=== PATIENT | female | born 1955 | race Caucasian/White ===

== ENCOUNTER 2018-10-06 00:36 | Day surgery (SDC) | payer MEDICARE, OTHER ==
[2018-10-05 15:17] LABS: INR 0.98
[~2018-10-06] VITALS: Ht 154.9 cm; Wt 74.8 kg
[~2018-10-06 00:36] MED LIST: BACL-1 PO; FLUT16SP19 NS; OXYC-865 PO; SIMV-44 PO
[2018-10-06] MEDS ORDERED: MIDAZOLAM 2 MG/2 ML VIAL IVP PRN (06:00)
[2018-10-06] MEDS ORDERED: LIDOCAINE/SOD BICARB 8.4% SYR ID ONE (06:00)
[2018-10-06] MEDS ORDERED: NORMOSOL R SOLN(*) 1000 ML BAG 1,000 ML IV PRN (06:00)
[2018-10-06] MEDS ORDERED: CLINDAMYCIN(*) 900 MG/NS 50 ML 50 ML IVPB ONE (06:00)
[2018-10-06] MEDS ORDERED: BACITRACIN 50000 UNIT/VIAL 100,000 UNIT in NS 0.9% 3000 ML IRRIGATION BAG 3,000 ML IR ONE (06:00)
[2018-10-06] MEDS ORDERED: CELECOXIB 200 MG CAP PO ONE (06:00)
[2018-10-06] MEDS ORDERED: ROPIVACAINE/EPI/CLONIDINE/KET 50 ML SYRINGE INJ ONE (06:00)
[2018-10-06] MEDS ORDERED: PREGABALIN 150 MG CAPSULE PO ONE (06:00)
[2018-10-06] MEDS ORDERED: FAMOTIDINE 20 MG TAB PO ONE (06:00)
[2018-10-06] MEDS ORDERED: ACETAMINOPHEN 500 MG TAB PO ONE (06:00)
[2018-10-06] MEDS ORDERED: ROPIVACAINE 0.2% 20 ML VIAL ONE (07:42)
[2018-10-06] MEDS ORDERED: LIDO/EPI 2% MPF 1:200,000 20ML ONE (07:42)
[2018-10-06] MEDS ORDERED: fentaNYL CITR 250 MCG/5 ML AMP ONE (08:12)
[2018-10-06] MEDS ORDERED: DEXAMETHASONE SOD 4 MG/ML VIAL ONE (08:13)
[2018-10-06] MEDS ORDERED: LIDOCAINE MPF 1% 5 ML VIAL ONE (08:13)
[2018-10-06] MEDS ORDERED: PROPOFOL EMUL(*) 10MG/ML 20 ML 0 ML ONE (08:13)
[2018-10-06] MEDS ORDERED: ONDANSETRON 4 MG/2 ML VIAL ONE (08:13)
[2018-10-06] MEDS ORDERED: KETAMINE HCL 200 MG/20 ML MDV ONE (08:14)
[2018-10-06] MEDS ORDERED: SUGAMMADEX SOD 200 MG/2 ML SDV ONE (08:17)
[2018-10-06 08:19] VITALS: BP 132/76
== END 2018-10-06 18:00 | disposition home or self-care (01) ==
LOC: OR 00:36
PROVIDERS: ATTEND Orthopaedic Surgery
DX: Z02.89 Encounter for other administrative examinations (principal)
CPT/HCPCS: 36415; 85610; 86850; 86900; 86901; J1100; J2001; J2405; J2704; J2795; J3010; J3490

== ENCOUNTER 2018-10-14 02:00 | Inpatient (IN) | payer MEDICARE, OTHER ==
[2018-10-14] VITALS (13 sets, daily range): BP systolic 112–148; BP diastolic 66–103
[~2018-10-14] VITALS: Ht 154.9 cm; Wt 75.3 kg
[2018-10-14] MEDS ORDERED: METOCLOPRAMIDE 10 MG/2 ML SDV ONE (08:25)
[2018-10-14] MEDS ORDERED: PROPOFOL EMUL(*) 10MG/ML 20 ML 20 ML ONE (08:25)
[2018-10-14] MEDS ORDERED: LIDOCAINE MPF 1% 5 ML VIAL ONE (08:25)
[2018-10-14] MEDS ORDERED: ONDANSETRON 4 MG/2 ML VIAL ONE (08:25)
[2018-10-14] MEDS ORDERED: DEXAMETHASONE SOD 4 MG/ML VIAL ONE (08:26)
[2018-10-14] MEDS ORDERED: MIDAZOLAM 2 MG/2 ML VIAL IVP PRN (11:00)
[2018-10-14] MEDS ORDERED: CLINDAMYCIN(*) 900 MG/NS 50 ML 50 ML IVPB ONE (11:00)
[2018-10-14] MEDS ORDERED: NORMOSOL R SOLN(*) 1000 ML BAG 1,000 ML IV PRN (11:00)
[2018-10-14] MEDS ORDERED: ROPIVACAINE/EPI/CLONIDINE/KET 50 ML SYRINGE INJ ONE (11:00)
[2018-10-14] MEDS ORDERED: PREGABALIN 150 MG CAPSULE PO ONE (11:00)
[2018-10-14] MEDS ORDERED: ACETAMINOPHEN 500 MG TAB PO ONE (11:00)
[2018-10-14] MEDS ORDERED: FAMOTIDINE 20 MG TAB PO ONE (11:00)
[2018-10-14] MEDS ORDERED: CELECOXIB 200 MG CAP PO ONE (11:00)
[2018-10-14] MEDS ORDERED: LIDOCAINE/SOD BICARB 8.4% SYR ID ONE (11:00)
[2018-10-14] MEDS ORDERED: BACITRACIN 50000 UNIT/VIAL 100,000 UNIT in NS 0.9% 3000 ML IRRIGATION BAG 3,000 ML IR ONE (11:00)
[2018-10-14 11:02] LABS: INR 0.97
[2018-10-14] MEDS ORDERED: fentaNYL CITR 250 MCG/5 ML AMP ONE (12:41)
[2018-10-14] MEDS ORDERED: LIDO/EPI 2% MPF 1:200,000 20ML ONE (13:26)
[2018-10-14] MEDS ORDERED: ROPIVACAINE 0.2% 20 ML VIAL ONE (13:26)
[2018-10-14] MEDS ORDERED: ROCURONIUM BROM 10 MG/ML 10 ML ONE (13:44)
[2018-10-14] MEDS ORDERED: ePHEDrine 25 MG/5 ML DISP.SYR IVP ONE (13:57)
[2018-10-14] MEDS ORDERED: SUGAMMADEX SOD 200 MG/2 ML SDV ONE (15:33)
[2018-10-14] MEDS ORDERED: fentaNYL CITR 100 MCG/2 ML AMP ONE (16:12)
[2018-10-14] MEDS ORDERED: FLUSH 10 ML SYR IVP PRN (16:15)
[2018-10-14] MEDS ORDERED: HYDROmorphone HCL 2 MG/ML SDV IVP PRN (16:15)
[2018-10-14] MEDS ORDERED: diphenhydrAMINE 25 MG CAP PO PRN (16:15)
[2018-10-14] MEDS ORDERED: ZOLPIDEM TARTRATE 5 MG TAB PO PRN (16:15)
[2018-10-14] MEDS ORDERED: MAGNESIUM CITRATE 300 ML BTL PO PRN (16:15)
[2018-10-14] MEDS ORDERED: LR 1000 ML BAG 1000 ML IV PRN (16:15)
[2018-10-14] MEDS ORDERED: MAGNESIUM HYDROXIDE* 30ML UDCP PO PRN (16:15)
[2018-10-14] MEDS ORDERED: BISACODYL 10 MG SUPP PR PRN (16:15)
[2018-10-14] MEDS ORDERED: PROMETHAZINE 25 MG/ML 1 ML AMP IVP PRN (16:15)
[2018-10-14] MEDS ORDERED: diphenhydrAMINE 50 MG/ML VIAL IVP PRN (16:15)
[2018-10-14] MEDS ORDERED: ONDANSETRON 4 MG/2 ML VIAL IVP PRN (16:15)
--- NOTE | 2018-10-14 16:23 | OPERATIVE REPORT 1 ---
EVENT DATE: October 14, 2018 SURGEON: Alex Damon MD ANESTHESIOLOGIST: Weston Wallace MD ANESTHESIA: General LMA SSN/SSBN [employer] EQUIPMENT OPERATOR: Santino Lynne PA-C PREOPERATIVE DIAGNOSIS Right shoulder rotator cuff tear arthropathy. POSTOPERATIVE DIAGNOSIS Right shoulder rotator cuff tear arthropathy. PROCEDURE PERFORMED Right reverse total shoulder arthroplasty. FINDINGS The patient had a torn rotator cuff that was amenable for a reverse total shoulder arthroplasty. ESTIMATED BLOOD LOSS 150 mL. DRAINS None. COMPLICATIONS None. TOURNIQUET TIME Not applicable. IMPLANTS DJO size 8 small stem with a semiconstrained 4 mm poly and then a 32 -4 head with a standard base plate. SPECIMENS None. INDICATIONS AND HISTORY This patient is a 63-year-old female that presented to my clinic for evaluation of right shoulder pain and irritation going on for some time. She continued to have pain and problems despite conservative management and so therefore we talked to her about the implications of a reverse total shoulder arthroplasty. We told her there was no guarantee associated with this and that she may not have complete relief associated with it and she said she understood that, it could also be tight and irritated and she said that overall she wanted to go ahead with it as she was having quite a bit of pain and irritation and there was no other major options, so therefore we got her set up to do a right reverse total shoulder arthroplasty today 10/14/2018. The risk and benefits were discussed with the patient and informed consent was obtained at the last clinic visit. DESCRIPTION OF PROCEDURE As the patient was brought into the operating room, she and the procedure were both verified. She was placed supine on the operating table and induced and intubated by Anesthesia. The right upper extremity was then prepped and draped in the usual fashion. A timeout was observed, verifying the correct patient and procedure. The standard incision was made over the anterior aspect of the shoulder after anesthetizing the skin with lidocaine with epinephrine. I then was able to go through the skin and subcutaneous tissue until I got down to the deltopectoral approach. I identified the cephalic vein, retracted it to the lateral side and went through the deltopectoral approach until I got down to the clavipectoral fascia and the subscapularis. I then did a biceps tenotomy in this area, tieing the biceps into the pack and then was able to removed the subscapularis without any major difficulty. Once I peeled back the subscapularis, I was then able to tag it for later repair and I took it directly off the lesser tuberosity without any difficulty. I then was able to expose the humeral head where the supraspinatus was torn off completely and then cut the humeral head in conjunction with the DJO reverse. I then was able to put retractors around the glenoid and removed the labrum and the rest of the biceps stump off the labrum itself. I then exposed the glenoid and then drilled a hole centrally through the glenoid itself using the drill, then put in the standard tamp and reamed to a concentric ream. This was then followed by placement of the standard baseplate which had good fixation and fixation to the glenoid itself. I then drilled the four screw holes and then put two 18s, a 26 and a 22 into the glenoid baseplate in order to fix it in place. This was then followed by irrigation with copious amounts of saline and then placement of 32 -4 head and the set screw without any difficulty. I then turned attention back to the humerus, where I was able to then ream all the way down into the canal until I got to an 8 mm reamer. This had a pretty tight fit, so therefore utilized a 6 stem. This was then followed by reaming the superior part in order to then accommodate the small stem. We used the small stem from the DJO system secondarily due to the fact that she is a very small boned female and the large one would have probably been too large. I then put 5 suture holes through the lesser tuberosity in order to repair the subscapularis back on. I then put in the final prosthesis without any major difficulty. As we put it in, it did make a small crack in the inferior portion and just on the rim. There were no signs of compromise within the proximal humerus itself. This was then followed by a trail of the stem with a regular prosthesis. This unfortunately was a little bit too tight and so therefore used a semiconstrained socket and poly which then fit significantly better which was a size 32 with a Vitamin E impregnated poly. This then fit significantly better and so therefore this was the final prosthesis chosen. We irritated with copious amounts of saline using the pulsatile lavage and then put in the final poly, reduced it and it had excellent range of motion and stability associated with it, so then I repaired the subscapularis using the five sutures. Then, this was followed by irrigation again and then closure of the deltopectoral interval with an 0 Stratafix, followed by 2-0 Stratafix in the subcutaneous tissue and then subcuticular running Monocryl in the skin. The wound was then anesthetized with Ropivacaine after we put in a joint cocktail, and then skin was dressed with Steri-Strips, gauze, 4x4s, and a soft dressing. The patient was put in a regular sling and then awakened, extubated, and transferred to the PACU in stable condition. MOY
--- NOTE | 2018-10-14 16:46 | RADIOLOGY IMAGING REPORT ---
FACILITY: [facility] PATIENT NAME: Chantel Guzman : 1955 MR: [id number] V: [id number] EXAM DATE: ORDERING PHYSICIAN: MARIE FORTE TECHNOLOGIST: Location: [facility] - [place] Patient: Chantel Guzman : 1955 Visit/Account:[id number] Date of Sevice: 10/14/2018 SHOULDER 1 VIEW RIGHT HISTORY: S/P R REVERSE TSA Additional history: None COMPARISON: None. FINDINGS: Status post right shoulder arthroplasty. Orthopedic hardware unremarkable and no evidence of subluxation this single view. IMPRESSION: Status post right bipolar shoulder arthroplasty appears unremarkable in this single AP view. Report Dictated By: Tomas Rowan MD at 10/14/2018 4:40 PM Report E-Signed By: Tomas Rowan MD at 10/14/2018 4:42 PM WSN:[id number]
--- NOTE | 2018-10-14 18:30 | Hospitalist Progress Note ---
Subjective Progress Notes Subjective Patient seen post-op. Reviewed PMHx (hypercholesterolemia, chronic pain) and medications. At present she reports doing well. No CP/SOB/N/V. Physical Exam Vital Signs Date Time Temp Pulse Resp B/P (MAP) Pulse Ox O2 Delivery O2 Flow Rate FiO2 10/14/18 17:43 91 Nasal Cannula 1.0 10/14/18 17:30 101 126/86 (99) 10/14/18 17:25 98.2 16 General Appearance: Alert, Awake Cardiovascular: Regular Rate and Rhythm Respiratory: Clear to Auscultation Assessment and Plan Problems: (1) S/P shoulder replacement Status: Acute Assessment & Plan: She appear stable post-op. As per Dr. Damon. (2) Hypercholesteremia Status: Chronic Assessment & Plan: Will continue her simvastatin. (3) Chronic pain Status: Chronic Assessment & Plan: She has been managed with Percocet and baclofen. She has signed a pain contract. FRANKLIN SALINAS MD Oct 14, 2018 18:30
[2018-10-14] MEDS ORDERED: SIMVASTATIN 40 MG TAB PO SCH (21:00)
[2018-10-14] MEDS ORDERED: FLUTICASONE PROP 0.05% 16 GM SCH (21:00)
[2018-10-14] MEDS ORDERED: NS(*) 0.9% 250 ML BAG 250 ML ONE (21:25)
[2018-10-14] MEDS: BACLOFEN 10 MG TAB PO SCH (21:33)
[2018-10-14] MEDS: CLINDAMYCIN(*) 600 MG/NS 50 ML 50 ML IVPB SCH (21:33)
[2018-10-15] VITALS: BP 112/73
[2018-10-15 01:00] VITALS: BP 116/74
[2018-10-15 02:00] VITALS: BP 117/75
[2018-10-15] MEDS: CLINDAMYCIN(*) 600 MG/NS 50 ML 50 ML IVPB SCH ×2 (05:04→12:03)
[2018-10-15 07:49] VITALS: BP 116/63
[2018-10-15] MEDS: BACLOFEN 10 MG TAB PO SCH (09:55)
[2018-10-15 10:18] VITALS: Ht 154.9 cm; Wt 75.3 kg
--- NOTE | 2018-10-15 10:46 | Hospitalist Progress Note ---
Subjective Progress Notes Subjective She was admitted after shoulder replacement. She has no complaints this morning. She would like to go home today. Patient Complains of: Cardiovascular: No: Chest Pain Respiratory: No: Shortness of Breath Physical Exam Vital Signs Date Time Temp Pulse Resp B/P (MAP) Pulse Ox O2 Delivery O2 Flow Rate FiO2 10/15/18 07:49 98.0 97 16 116/63 (80) 92 Room Air 10/14/18 20:29 2.0 Intake and Output 10/15/18 00:00 Intake Total 2325 ml Balance 2325 ml Intake Oral 300 ml IV Total 2025 ml # Voids 1 General Appearance: Alert, Awake, No Acute Distress, Afebrile Neuro: No Gross deficits Cardiovascular: Regular Rate and Rhythm Respiratory: No Respiratory Distress, Clear to Auscultation Psych: Alert & Oriented X3, Appropriate Mood & Affect Result Diagram: 10/15/18 0518 Assessment and Plan Problems: (1) S/P shoulder replacement Status: Acute Assessment & Plan: She appear stable post-op. As per Dr. Damon. (2) Hypercholesteremia Status: Chronic Assessment & Plan: Will continue her simvastatin. (3) Chronic pain Status: Chronic Assessment & Plan: She has been managed with Percocet and baclofen. She has signed a pain contract. Exam Sepsis Risk: No Definite Risk Problem Qualifiers (1) S/P shoulder replacement: Laterality: right Qualified Codes: Z96.611 - Presence of right artificial shoulder joint AUTUMN GILBERTP Oct 15, 2018 10:46
--- NOTE | 2018-10-15 13:58 | NUR ---
Occupational Therapy Impression Pt alert and agreeable to OT tx. Reporting pain at a 4/10, pain medication provided prior. Ice, positioning offered. Reviewed precautions, ther ex per protocol, wear/fit of sling, cryocuff and ADLs. Spouse present and engaged in education, plans to assist with ADLs/IADLs as needed. SpO2 WNL on room air. Pt with no further questions/concerns for OT at time of discharge. Occupational Therapy Goals Patient's Goal
== END 2018-10-15 14:36 | disposition home or self-care (01) | DRG 483 ==
LOC: OR 02:00 → MED 17:28
PROVIDERS: ADMIT Orthopaedic Surgery; ATTEND Orthopaedic Surgery
PROC: 0RRJ00Z Replacement of Right Shoulder Joint with Reverse Ball and Socket Synthetic Substitute, Open Approach (ICD-10-PCS; principal; 2018-10-14 13:44)
DX: M19.011 Primary osteoarthritis, right shoulder (principal); E11.9 Type 2 diabetes mellitus without complications; G89.29 Other chronic pain; K21.9 Gastro-esophageal reflux disease without esophagitis; E78.00 Pure hypercholesterolemia, unspecified; Z90.710 Acquired absence of both cervix and uterus
CPT/HCPCS: 36415; 85014; 85018; 85610; 86850; 86900; 86901; 97165; A4565; C1776; J1100; J1170; J2001; J2250; J2405; J2704; J2765; J2795; J3010; J3490; J7050